=== PATIENT | female | born 1970 | race Caucasian/White ===

== ENCOUNTER 2020-03-06 11:36 | Inpatient (IN) | payer MEDICAID ==
[~2020-03-06] VITALS: Ht 157.5 cm; Wt 97.5 kg
[2020-03-07] MEDS ORDERED: ZOLPIDEM TARTRATE 10 MG TABLET PO PRN (10:45)
[2020-03-07] MEDS ORDERED: LOPERAMIDE HCL 2 MG CAPSULE PO PRN (10:45)
[2020-03-07] MEDS ORDERED: LORazepam 2 MG TABLET PO PRN (10:45)
[2020-03-07] MEDS ORDERED: OLANZapine 5 MG RAPDIS TABLET PO PRN (10:45)
[2020-03-07] MEDS ORDERED: PROMETHAZINE HCL 25 MG TABLET PO PRN (10:45)
[2020-03-07] MEDS ORDERED: MAG HYDROX/AL HYDROX/SIMETH ES 30 ML SUSPENSION UDCUP PO PRN (10:45)
[2020-03-07] MEDS ORDERED: GuaiFENesin/D-METHORPHAN [SUGAR-FREE] 200-20MG/10 ML SYRUP UDCUP PO PRN (10:45)
[2020-03-07] MEDS ORDERED: ACETAMINOPHEN 325 MG TABLET PO PRN (10:45)
[2020-03-07] MEDS ORDERED: MAGNESIUM HYDROXIDE SUSPENSION 30 ML UDCUP PO PRN (10:45)
[2020-03-07] MEDS ORDERED: HydrOXYzine PAMOATE 50 MG CAPSULE PO PRN (10:45)
[2020-03-07] MEDS ORDERED: TUBERCULIN, PURIFIED PROTEIN DERIVATIVE 5 TU/0.1 ML SYRINGE ID ONE (10:45)
[2020-03-07 13:54] VITALS: BP 171/94
[2020-03-07] MEDS ORDERED: INFLUENZA VIRUS VACCINE QVS 2020-21 (6MO+)/PF 60 MCG/0.5 ML SYRINGE IM ONE (15:15)
[2020-03-07] MEDS ORDERED: PNEUMOCOCCAL VACCINE POLYVALENT 0.5 ML VIAL [PPSV23] IM ONE (15:15)
[2020-03-07] MEDS: THIAMINE 100 MG TABLET PO SCH (16:12)
[2020-03-07] MEDS: GABAPENTIN 300 MG CAPSULE PO SCH ×2 (16:18→21:35)
[2020-03-07] MEDS: ATENOLOL 50 MG TABLET PO SCH (16:18)
[2020-03-07 17:51] VITALS: BP 140/90
[2020-03-07] MEDS ORDERED: MIRTAZAPINE 15 MG TABLET PO SCH (21:00)
[2020-03-07] MEDS ORDERED: OLANZapine 5 MG RAPDIS TABLET PO SCH (21:00)
[2020-03-07 21:35] VITALS: BP 132/86
[2020-03-07] MEDS: PRAZOSIN HCL 1 MG CAPSULE PO SCH (21:35)
[2020-03-08 08:01] LABS: BASOPHILS % (AUTO) 0.6 % (0.0-2.0); HEMATOCRIT 39.7 % (36-46); HEMOGLOBIN 13.3 g/dL (12.0-16.0); LYMPHOCYTES # (AUTO) 2.1 K/uL (1.0-4.8); MEAN CORPUSCULAR HEMOGLOBIN 31.1 pg (26.0-34.0); MEAN CORPUSCULAR HGB CONC 33.4 G/dL (31.0-37.0); MEAN CORPUSCULAR VOLUME 93 fL (80-100); MONOCYTES # (AUTO) 0.5 K/uL (0.1-1.0); MONOCYTES % (AUTO) 5.6 % (2.0-9.0); NEUTROPHILS # (AUTO) 5.9 K/uL (1.8-7.7); NEUTROPHILS % (AUTO) 66.8 % (40.0-70.0); PLATELET COUNT (AUTO) 472 K/uL (150-450); RED BLOOD CELL COUNT(AUTO) 4.27 MIL/uL (4.00-5.20); RED CELL DISTRIBUTION WIDTH 12.8 % (11.5-14.5)
[2020-03-08 08:11] LABS: HEMOGLOBIN A1C 5.5 % (3.8-5.6)
[2020-03-08 08:13] VITALS: BP 134/88
[2020-03-08 08:27] LABS: ALANINE AMINOTRANSFERASE 43 U/L (12-78); ALBUMIN 3.3 g/dL (3.4-5.0); ALKALINE PHOSPHATASE 134 U/L (46-116); ANION GAP 8 mmol/L (8-16); ASPARTATE AMINOTRANSFERASE 23 U/L (15-37); BILIRUBIN,TOTAL 0.3 mg/dL (0.1-1.0); CALCIUM, TOTAL 8.5 mg/dL (8.8-10.5); CARBON DIOXIDE 28 mmol/L (22-29); CHLORIDE 104 mmol/L (98-107); CHOL/HDL RATIO 4.6 (3.9-5.7); CHOLESTEROL 218 mg/dL (131-200); CREATININE 0.84 mg/dL (0.60-1.30); FREE T4 (FREE THYROXINE) 0.89 ng/dL (0.76-1.46); GLOMERULAR FILTR. RATE CALC > 60 mL/min (>60); GLUCOSE,RANDOM 103 mg/dL (70-110); HDL CHOLESTEROL 47 mg/dL (40-60); LDL CHOL (CALC.) 141 mg/dL (0-130); SODIUM SERUM 140 mmol/L (136-145); THYROID STIMULATING HORMONE 0.51 uIU/mL (0.36-3.74); TOTAL PROTEIN, SERUM 6.6 g/dL (6.4-8.2); TRIGLYCERIDES 149 mg/dL (15-150); UREA NITROGEN, BLOOD 15 mg/dL (7-18)
[2020-03-08] MEDS: DULoxetine HCL 20 MG CAPSULE PO SCH (08:32)
[2020-03-08] MEDS: GABAPENTIN 300 MG CAPSULE PO SCH ×2 (08:32→12:31)
[2020-03-08] MEDS: OMEGA-3/DHA/EPA/FISH OIL 1,000 MG CAPSULE PO SCH (08:32)
[2020-03-08] MEDS: MULTIVITAMINS WITH MINERALS, THERAPEUTIC TABLET PO SCH (08:32)
[2020-03-08] MEDS: NALTREXONE HCL 50 MG TABLET PO SCH (08:32)
[2020-03-08] MEDS: THIAMINE 100 MG TABLET PO SCH ×2 (08:32→16:35)
[2020-03-08] MEDS: ATENOLOL 50 MG TABLET PO SCH (08:32)
[2020-03-08] MEDS: FOLIC ACID 1 MG TABLET PO SCH (08:32)
[2020-03-08] MEDS ORDERED: BuPROPion HCL XL 150 MG ER TABLET PO SCH (09:00)
[2020-03-08] MEDS ORDERED: FLUoxetine HCL 20 MG CAPSULE PO SCH (09:00)
[2020-03-08 16:17] VITALS: BP 150/88
[2020-03-08] MEDS: GABAPENTIN 100 MG CAPSULE PO SCH ×2 (16:27→20:24)
[2020-03-08] MEDS ORDERED: LORazepam 1 MG TABLET PO PRN (18:45)
[2020-03-08] MEDS: PRAZOSIN HCL 1 MG CAPSULE PO SCH (20:23)
[2020-03-08] MEDS ORDERED: MIRTAZAPINE 15 MG TABLET PO SCH (21:00)
[2020-03-09 08:41] VITALS: BP 105/69
[2020-03-09] MEDS: NALTREXONE HCL 50 MG TABLET PO SCH (09:00)
[2020-03-09] MEDS: OMEGA-3/DHA/EPA/FISH OIL 1,000 MG CAPSULE PO SCH (09:30)
[2020-03-09] MEDS: GABAPENTIN 100 MG CAPSULE PO SCH ×4 (09:30→20:38)
[2020-03-09] MEDS: THIAMINE 100 MG TABLET PO SCH ×2 (09:30→16:42)
[2020-03-09] MEDS: DULoxetine HCL 20 MG CAPSULE PO SCH (09:30)
[2020-03-09] MEDS: FOLIC ACID 1 MG TABLET PO SCH (09:30)
[2020-03-09] MEDS: MULTIVITAMINS WITH MINERALS, THERAPEUTIC TABLET PO SCH (09:31)
[2020-03-09] MEDS: ATENOLOL 50 MG TABLET PO SCH (09:36)
[2020-03-09] MEDS ORDERED: PRAZ1 PO (15:25)
[2020-03-09] MEDS ORDERED: OMEG-135 PO (15:25)
[2020-03-09] MEDS ORDERED: DULO20CA27 PO (15:25)
[2020-03-09] MEDS ORDERED: MIRT-89 PO (15:25)
[2020-03-09] MEDS ORDERED: NALT50TA PO (15:25)
[2020-03-09] MEDS ORDERED: GABA-1216 PO (15:25)
[2020-03-09 16:10] VITALS: BP 131/82
[2020-03-09] MEDS: PRAZOSIN HCL 1 MG CAPSULE PO SCH (20:38)
[2020-03-09] MEDS ORDERED: MIRTAZAPINE 15 MG TABLET PO SCH (21:00)
[2020-03-10 05:59] VITALS: BP 120/81
[2020-03-10] MEDS ORDERED: DULoxetine HCL 30 MG CAPSULE PO SCH (09:00)
[2020-03-10 09:03] VITALS: BP 142/103
[2020-03-10] MEDS: GABAPENTIN 100 MG CAPSULE PO SCH ×2 (09:07→12:46)
[2020-03-10] MEDS: ATENOLOL 50 MG TABLET PO SCH (09:08)
[2020-03-10] MEDS: MULTIVITAMINS WITH MINERALS, THERAPEUTIC TABLET PO SCH (09:08)
[2020-03-10] MEDS: THIAMINE 100 MG TABLET PO SCH (09:08)
[2020-03-10] MEDS: FOLIC ACID 1 MG TABLET PO SCH (09:08)
[2020-03-10] MEDS: OMEGA-3/DHA/EPA/FISH OIL 1,000 MG CAPSULE PO SCH (09:08)
[2020-03-10] MEDS: NALTREXONE HCL 50 MG TABLET PO SCH (09:08)
[2020-03-10] MEDS ORDERED: ATEN-72 PO (10:45)
== END 2020-03-10 15:00 | disposition home or self-care (01) | DRG 751 ==
LOC: B2S 03-07 13:23
PROVIDERS: ADMIT Psychiatry & Neurology Psychiatry; ATTEND Psychiatry & Neurology Psychiatry
DX: F33.2 Major depressive disorder, recurrent severe without psychotic features (principal); G43.909 Migraine, unspecified, not intractable, without status migrainosus; G40.409 Other generalized epilepsy and epileptic syndromes, not intractable, without status epilepticus; G89.29 Other chronic pain; Z85.528 Personal history of other malignant neoplasm of kidney; Z87.440 Personal history of urinary (tract) infections; Z87.442 Personal history of urinary calculi; Z88.8 Allergy status to other drugs, medicaments and biological substances; Z79.899 Other long term (current) drug therapy
CPT/HCPCS: 83036; 84439; 84443; 86592; 87081; 90686; 90732